=== PATIENT | male | born 1945 | race Caucasian/White ===

== ENCOUNTER → 2018-03-05 | Outpatient (CLI) | payer OTHER ==
[~2018-03-05] VITALS: Ht 172.7 cm; Wt 74.8 kg
[~2018-03-05] MED LIST: BAYER CHEWABLE81 MG PO; CENTRUM SILVER1 EAC4 PO; FIBERCON625 M1 PO; MOBIC7.5 MG PO; PRAVACHOL20 MG PO; TRAMADOL 50 MG50 MG PO; ZANAFLEX4 MG PO
--- NOTE | ~2018-03-05 | HPC ---
[facility] [address] [place] [address] PAIN MANAGEMENT CONSULTATION Name: MADDIE GAMEZ V Room #: REG [facility].#: [id number] Admission: 03/05/18 Attend Phys: Felice Blackburn DO Discharge: Date of : 45 Report #: [id number] THIS REPORT FOR: //name// CC: Acosta Blackburn The patient is very pleasant 72-year-old gentleman seen in consultation at the request of Dr. Acosta Downs for evaluation of axial back pain. The patient has had chronic axial back pain for years, but golfing late December, while in awkward position, he swung, hit a ball with acute exacerbation of pain in the left low back. The patient has tried 30 days of physical therapy including range of motion, stretching and dry needling, K tape massage, nonsteroidal anti-inflammatory medications, all with nominal efficacy. He describes intermittent burning, shooting, aching, cramping pain, he rates anywhere from 2-5 on a VAS. Fortunately, he denies any lumbar radicular radiation or myelopathic symptoms. No paresthesia or bowel or bladder continence changes, but pain is quite problematic with standing and significantly impacting his golf swing. REVIEW OF SYSTEMS: Complete review of systems attached to chart and was gone over with the patient. He is and accompanied his who is supportive. He does not smoke, drink alcohol to excess. He has enjoyed remarkably good health. Has some dyslipidemia for which he takes pravastatin, some chronic axial back pain, which has been inconsequential until now. He is retired from executive level job. Pain impact score is 21/70. PHYSICAL EXAMINATION: Reveals 5 feet 8 inch, 165 pound gentleman, BMI is 25.1 kilograms per meter squared. Cranial nerves 2-12 are grossly intact. Pupils are equal, react to light and accommodation. Extraocular muscles are intact. There is no nystagmus. Lateral gaze deviation. Cervical range of motion is full. Thyroid is unremarkable. Upper extremity strength is preserved. Blood pressure 123/79, pulse 60, respirations 16. Heart is regular and rhythmical without murmur. Lungs are clear. Abdomen is benign. Rises from chair using armrest. Diffuse tenderness across the low back, left L4-L5 up to mid lumbar area. Pain is exacerbated with rotation and side bending. Flexion is nominally impacted. Lower extremity strength is preserved. Straight leg raise is negative. Patellar and Achilles reflexes are preserved. Diagnostic studies include x-ray of the lumbar spine from 02/26/2018 noting mild degenerative changes of the lumbar spine, MRI of the lumbar spine from 02/28/2018 notes mild facet arthrosis, L3-L4, L4-L5, L5-S1. ASSESSMENT: Symptomatic lumbar spondylosis without myelopathy (M48.816) in a 72-year-old gentleman with reasonably good [place] [address] PAIN MANAGEMENT CONSULTATION Name: MADDIE GAMEZ V Room #: REG [facility]#: [id number] Admission: 03/05/18 Attend Phys: Felice Blackburn DO Discharge: Date of : 45 Report #: [id number] RECOMMENDATION: Discussed with the patient and his today about therapeutic option. We have elected to start meloxicam 7.5 b.i.d., tizanidine 4 mg 1 to 2 at bedtime for spasm and sedation, follow up on Friday for fluoroscopic-guided left L3-L4, L4-L5 and L5-S1 facet joint injection under fluoroscopy. If this affords good relief, we will cancel followup. If this affords transient relief, we will consider moving forward with medial branch dorsal rami diagnostic block, left L2, L3, L4 and L5 in consideration of RFL of same. Thank you for allowing me to participate in the patient's care. I will keep you abreast of his progress. <ELECTRONICALLY SIGNED> By: Felice Blackburn DO 03/06/18 0727 [id number] Felice Blackburn DO /nt
[2018-03-05 12:51] VITALS: BP 123/79
== END ==
LOC: PAIN 06:57
DX: M54.5 Low back pain (principal); Z79.899 Other long term (current) drug therapy

== ENCOUNTER → 2018-03-09 | Outpatient (CLI) | payer OTHER ==
[~2018-03-09] VITALS: Ht 172.7 cm; Wt 74.8 kg
--- NOTE | ~2018-03-09 | HPC ---
[facility] [place] [address] PAIN MANAGEMENT CONSULTATION Name: MADDIE GAMEZ V [facility] [id number] Admission: 03/09/18 Attend Phys: Felice Blackburn DO Discharge: Date of : 45 Report #: [id number] THIS REPORT FOR: //name// CC: Acosta Blackburn PAIN CLINIC PROCEDURE NOTE The patient is a very pleasant 72-year-old gentleman, prior seen in consultation, 03/05/2018, diagnosed with symptomatic lumbar spondylosis without myelopathy. It is noteworthy that the dictation of 03/05/2018 notes some pain is on the left side. This is actually an error on my part; his pain is low back, right side. The patient presents to pain clinic today for lumbar facet blocks. This will be both diagnostic and therapeutic. If he gets short-term relief, we will consider medial branch dorsal rami diagnostic blocks. If he gets longer term relief and pain begins to recur, we can consider repeat block versus medial branch dorsal rami diagnostic block at that time. The patient still has ongoing pain in the right low back, though it is fairly nominal at present, typically exacerbated after he starts playing golf, several holes and is present throughout the remainder of the 18-hole game. ASSESSMENT: Symptomatic lumbar spondylosis without myelopathy. Pain over the right L2-L3, L3-L4 and L4-L5 facets. PROCEDURE: Right 3-level lumbar facet joint injection under fluoroscopy. DESCRIPTION OF PROCEDURE: After written and informed consent was obtained, the patient was taken to the fluoroscopy suite and placed in prone position. After sterile prep and drape, skin wheal was raised. A 22-guage stylet needle was placed to contact the inferior aspect of the right L2-L3, right L3-L4 and right L4-L5 facet joints. AP and oblique projections showed good needle placement. A 20 mg triamcinolone plus 1 mL of 0.5% preservative-free bupivacaine was injected at each site. All 3 needles were removed. The area was cleansed. Band-Aid was applied. The patient monitored for an appropriate period of time, discharged in good and stable condition. <ELECTRONICALLY SIGNED> By: Felice Blackburn DO 03/11/18 0800 [id number] [id number] Felice Blackburn DO /nt
[2018-03-09 13:01] VITALS: BP 117/72
== END | disposition home or self-care (01) ==
LOC: PAIN 08:08
DX: M47.816 Spondylosis without myelopathy or radiculopathy, lumbar region (principal); G89.29 Other chronic pain; Z79.891 Long term (current) use of opiate analgesic; Z79.82 Long term (current) use of aspirin; Z79.899 Other long term (current) drug therapy

== ENCOUNTER → 2018-03-20 | Outpatient (CLI) | payer OTHER ==
[~2018-03-20] VITALS: Ht 172.7 cm; Wt 73.5 kg
--- NOTE | ~2018-03-20 | HPC ---
[facility] [place] [address] PAIN MANAGEMENT CONSULTATION Name: MADDIE GAMEZ Tee Room #: REG [facility].#: [id number] Admission: 03/20/18 Attend Phys: Felice Blackburn DO Discharge: Date of : 45 Report #: [id number] THIS REPORT FOR: //name// CC: Acosta Blackburn The patient is a 72-year-old gentleman initially seen on 03/05/2018, diagnosed with right lumbar pain, lumbar spondylosis without myelopathy. We progressed to perform right L2-L3, L3-L4, L4-L5 facet joint injections under fluoroscopy on 03/09/2018. He returns to pain clinic today. Had a moderately prolonged visit from 10:00 a.m. to nearly 10:30, greater than 50% of time spent counseling the patient, reviewing therapeutic options and discussing the patient's specific anatomy. The patient notes that he has had ongoing improvement following the injection, rating 100% relief. He is able to play golf. He does note that some rotation movements does exacerbate pain, but he played 18 holes with just some stretching and ibuprofen occasionally. Rates pain as a 0 on a VAS, 5-6 at worst following 18 holes of golf. PHYSICAL EXAMINATION: Shows a 72-year-old gentleman, BMI is 24.6 kilograms per meter squared. Vital signs stable as noted in the EMR. Rises from chair easily. Lumbar range of motion is actually fairly full at this time. Lower extremity strength is preserved. We reviewed the patient's diagnostic findings including the x-ray of the lumbar spine from 02/26/2018, which showed some mild degenerative changes of the lumbar spine and the MRI from 02/28/2018, which did note mild facet arthrosis at L3-L4, L4-L5 and L5-S1. Multilevel degenerative changes of lumbar spine without compression. I reviewed the patient's specific anatomy using the plastic spine and images from the procedure on 03/09/2018. I pointed out that the patient has some modest DJD in the facet joints. Pain will likely recur off and on. Again, his acute exacerbation of pain came when he swung a golf club in an awkward fashion, striking the ground and transmitting a fair load of torque to his right low back. Currently, physical exam is fairly unremarkable. The patient does have some ongoing DJD. We talked about using Aleve [id number] prophylactically prior to playing golf. If he has acute exacerbation of symptoms, suggest he take this b.i.d. for a short course of time. We did talk in broad terms about general risk of NSAID agents and coronary artery disease. I did point out that routine use of these agents can increase risk of having a myocardial event; however, this tend to be dose related and [facility] [address] [place] [address] PAIN MANAGEMENT CONSULTATION Name: MADDIE GAMEZ V Room #: REG [facility]#: [id number] Admission: 03/20/18 Attend Phys: Felice Blackburn DO Discharge: Date of : 45 Report #: [id number] nondaily use, intermittent use tends to significantly mitigate this risk concern. ASSESSMENT: Symptomatic lumbar and lumbosacral spondylosis without myelopathy, axial back pain in a gentleman who has had excellent relief following a right L2-L3, L3-L4 and L4-L5 facet joint injections under fluoroscopy at last visit. Does not really warrant further interventional therapy at this time. If symptoms recur, again we will have him start back on a routine use of an NSAID for several days. If this does not abort the symptoms, we would be happy to see the patient back for consideration for repeat injection if indicated clinically. The patient was discharged in good and stable condition after a 25+ minute visit was spent counseling the patient, reviewing therapeutic options, discussing physical findings and correlating anatomy with a plastic model spine and images from the procedure of 03/09/2018. <ELECTRONICALLY SIGNED> By: Felice Blackburn DO 03/23/18 0710 1122 2031 Felice Blackburn DO /nt
[2018-03-20 09:52] VITALS: BP 145/87
== END ==
LOC: PAIN 06:57
DX: M47.816 Spondylosis without myelopathy or radiculopathy, lumbar region (principal); M47.817 Spondylosis without myelopathy or radiculopathy, lumbosacral region

== ENCOUNTER → 2019-01-15 | Outpatient (CLI) | payer OTHER ==
[~2019-01-15] VITALS: Ht 172.7 cm; Wt 70.3 kg
--- NOTE | 2019-01-18 11:46 | P ---
[facility] [place] [address] [place] [address] PROCEDURE REPORT Name: MADDIE GAMEZ V Room #: REG [facility]#: [id number] Admission: 01/15/19 ������������������ Attend Phys: Marko Lewis MD Discharge: ������������������ Date of : 45 Report #: [id number] THIS REPORT FOR: //name// CC: Marko Downs MD OUTPATIENT COLONOSCOPY REPORT BRIEF HISTORY: The patient is a 73-year-old male for average-risk screening colonoscopy. PREOPERATIVE DIAGNOSIS: Average-risk screening colonoscopy. POSTOPERATIVE DIAGNOSES: 1. Moderate sigmoid diverticulosis coli. 2. Small internal hemorrhoids. MEDICATIONS: Deep sedation with propofol per anesthesia. SPECIMEN: None. ESTIMATED BLOOD LOSS: None. PROCEDURE: Colonoscopy to the cecum and terminal ileum. FINDINGS: Prior to propofol sedation, the procedure of colonoscopy was discussed with the patient as well as potential risks and its complications. He indicates he understands and desires to proceed. DESCRIPTION OF PROCEDURE: With the patient in the left lateral decubitus position, a digital examination was completed, which revealed no abnormalities. Subsequently, the Olympus video colonoscope was introduced in the rectum, advanced under direct vision to the cecum. Done with minimal difficulty. Cecum was identified by the ileocecal valve and the appendiceal orifice. I was able to visualize the distal segment of the terminal ileum, which was inspected and noted to be unremarkable. At that point, the scope was slowly withdrawn and careful circumferential views obtained, including retroflexion of the scope in the ascending colon. Upon slow withdrawal of the scope, the prep was good. The mucosa was within normal limits. Normal vascular pattern, normal light reflex. As we withdrew the scope, no neoplastic lesions were seen. No inflammatory changes were seen. The colonic mucosa was normal throughout the entire colon. In the sigmoid colon, there was noted to be moderately severe diverticular disease, without endoscopic evidence of diverticulitis. The scope was withdrawn in the rectum. Upon retroflexion, no abnormalities were seen. Scope was withdrawn. The patient tolerated the procedure well. [address] [address] PROCEDURE REPORT Name: VERAMADDIE V Room #: REG [facility]#: [id number] Admission: 01/15/19 ������������������ Attend Phys: Marko Lewis MD Discharge: ������������������ Date of : 45 Report #: [id number] CONDITION OF THE PATIENT UPON DISCHARGE: Following the procedure, the patient drowsy, arousable and conversant and will be discharged to home when fully ambulatory. INSTRUCTIONS TO THE PATIENT AND FAMILY AT THE TIME OF DISCHARGE: No neoplastic lesions seen today. Suggest high-fiber diet due to the diverticular disease and hemorrhoids. He will return to the care of Dr. Mak Garcia and return to see me on an as-needed basis. I suggest followup colon exam in 10 years. His last colonoscopy was 11 years ago. Withdrawal time from the cecum was 11 minutes and 56 seconds. ��������������������������������������������� <ELECTRONICALLY SIGNED> ���������������������������������������� By: Marko Lewis MD ��������������������������������������������� 01/18/19 1146 [id number] [id number] Marko Lewis MD /nt
== END | disposition home or self-care (01) ==
LOC: GI 08:51
DX: Z12.11 Encounter for screening for malignant neoplasm of colon (principal); K57.30 Diverticulosis of large intestine without perforation or abscess without bleeding; K64.8 Other hemorrhoids; E78.00 Pure hypercholesterolemia, unspecified; Z98.41 Cataract extraction status, right eye; Z98.890 Other specified postprocedural states
CPT/HCPCS: G0121; 62110; 62900